=== PATIENT | female | born 1965 | race Caucasian/White ===

== ENCOUNTER → 2019-11-21 13:07 | Outpatient (BNVA) | payer BC, OTHER, SELFPAY | PROVIDERS: Family Provider Electrodiagnostic Medicine; PCP Electrodiagnostic Medicine; Visit Provider Internal Medicine Rheumatology | DX: L40.50 Arthropathic psoriasis, unspecified (principal); Z79.899 Other long term (current) drug therapy | CPT/HCPCS: 36415; 82565; 84460; 85651; 86140; 86480 ==

== ENCOUNTER → 2019-11-21 13:11 | Outpatient (BNVA) | payer BC, SELFPAY | PROVIDERS: Family Provider Electrodiagnostic Medicine; PCP Electrodiagnostic Medicine; Visit Provider Internal Medicine Rheumatology | DX: L40.50 Arthropathic psoriasis, unspecified (principal) | CPT/HCPCS: 85025 ==

== ENCOUNTER → 2020-04-14 14:13 | Outpatient (BNVA) | payer BC, SELFPAY | PROVIDERS: Family Provider Electrodiagnostic Medicine; PCP Electrodiagnostic Medicine; Visit Provider Internal Medicine Rheumatology | DX: Z79.899 Other long term (current) drug therapy (principal) | CPT/HCPCS: 36415; 80076; 82565; 85025; 85651; 86140 ==

== ENCOUNTER → 2020-05-21 14:38 | Outpatient (BNVA) | payer BC, OTHER, SELFPAY | PROVIDERS: Family Provider Electrodiagnostic Medicine; PCP Electrodiagnostic Medicine; Visit Provider Internal Medicine | DX: L40.50 Arthropathic psoriasis, unspecified (principal); R21 Rash and other nonspecific skin eruption | CPT/HCPCS: 99214 ==

== ENCOUNTER 2020-09-09 11:13 | Outpatient (CLI) | payer BC, SELFPAY ==
--- NOTE | 2020-09-09 11:19 | MM_ITS ---
WS: [id number] BILATERAL DIGITAL SCREENING MAMMOGRAPHY WITH CAD CLINICAL INFORMATION: SCREENING HISTORY: Screening mammogram. No current complaints. COMPARISON: TECHNIQUE: Bilateral CC and MLO views. FINDINGS: The breasts are composed of heterogeneous fibroglandular density tissue, which can limit the detectio n of small underlying mass lesions. No suspicious mass, asymmetry, calcifications, or architectural d istortion. No evidence of malignancy. Punctate and lucent centered calcifications. Stable right axill jorgito tail lymph node. MM/[place] [id number] IMPRESSION: BI-RADS: 2-Benign FOLLOW UP: 1 Year Follow-up Recommend return to annual screening mammography.
== END 2020-09-09 11:14 | disposition home or self-care (01) ==
LOC: RADSHAW 11:18
PROVIDERS: Family Provider Electrodiagnostic Medicine; PCP Electrodiagnostic Medicine; Visit Provider Electrodiagnostic Medicine
DX: Z12.31 Encounter for screening mammogram for malignant neoplasm of breast (principal)
CPT/HCPCS: 77067

== ENCOUNTER → 2020-11-10 15:42 | Outpatient (BNVA) | payer BC, SELFPAY | PROVIDERS: Family Provider Electrodiagnostic Medicine; PCP Electrodiagnostic Medicine; Visit Provider Internal Medicine | DX: Z79.899 Other long term (current) drug therapy (principal) | CPT/HCPCS: 36415; 80053; 85025; 85651; 86140 ==

== ENCOUNTER → 2020-11-18 12:06 | Outpatient (BNVA) | payer BC, SELFPAY | PROVIDERS: Family Provider Electrodiagnostic Medicine; PCP Electrodiagnostic Medicine; Visit Provider Internal Medicine | DX: L40.50 Arthropathic psoriasis, unspecified (principal); Z79.899 Other long term (current) drug therapy; Z87.891 Personal history of nicotine dependence | CPT/HCPCS: 99213; 99214 ==

== ENCOUNTER 2021-01-08 10:57 | Outpatient (CLI) | payer BC, SELFPAY ==
--- NOTE | 2021-01-08 11:05 | XR_ITS ---
WS: [id number] Right knee, 3 views, 01/08/2021 Clinical Data: DEGENERATIVE JOINT DZ R KNEE/CHRONIC R KNEE PAIN Comparison: Right knee, 08/10/2017. Findings: No fractures or dislocations are seen. There is narrowing of the medial joint compartment with develo pment of a small spur of the medial femoral condyle.. The patella shows a small spur at the posterior superior aspect.. The soft tissues are unremarkable. XR/XR knee RT 3V* [id number] Impression: Osteoarthritis with medial joint compartment narrowing and posterior patellar s purring of the right knee.
== END 2021-01-08 10:58 | disposition home or self-care (01) ==
PROVIDERS: PCP Electrodiagnostic Medicine; Visit Provider Electrodiagnostic Medicine
DX: M17.11 Unilateral primary osteoarthritis, right knee (principal)
CPT/HCPCS: 73562

== ENCOUNTER → 2021-04-01 13:00 | Outpatient (BNVA) | payer BC, SELFPAY | PROVIDERS: PCP Electrodiagnostic Medicine; Visit Provider Internal Medicine | DX: L40.50 Arthropathic psoriasis, unspecified (principal); Z79.899 Other long term (current) drug therapy; Z87.891 Personal history of nicotine dependence | CPT/HCPCS: 36415; 80053; 85025; 85651; 86140; 99213; 99214 ==

== ENCOUNTER → 2021-05-21 12:15 | Outpatient (BNVA) | payer BC, SELFPAY | PROVIDERS: PCP Electrodiagnostic Medicine; Visit Provider Surgery | DX: Z11.52 Encounter for screening for COVID-19 (principal) | CPT/HCPCS: 87635 ==

== ENCOUNTER 2021-05-27 08:13 | Day surgery (SDC) | payer BC, SELFPAY ==
[2021-05-25 08:34] VITALS: BMI 43.0
--- NOTE | 2021-05-27 08:33 | ANES.PREANE2 ---
Pre-Anesthetic Assessment Pre-Anesthetic Assessment: Height/Weight: Height 1.7 m Weight 124.738 kg Proposed Procedure: Operation Date: 05/27/21 09:30 Proposed Procedures p EGD [id number] z79.899 z12.11(Not Applicable) - Joseph Romero MD s Colonoscopy(Not Applicable) - Joseph Romero MD Was Beta Jovanny taken within 24 hours: N/A Was Clonidine taken within 24 hours: N/A Social: Social History: No alcohol and No tobacco Exam: Pre-Anes Outpt Exam: alert, oriented x 3, clear to auscultation bilaterally and regular rate & rhythm Airway: Submandibular: WNL Cervical ROM: WNL MP: 2 Dentition: Full CV/HEM: CV/HEM: HTN Metabolic: Metabolic: DM, Hyperlipidemia, Morbid obesity and Thyroid Neuropsych: Neuropsych: Anxiety Anesthetic Plan: ASA status: 3 Anesthesia: MAC Risk of > 500 ml blood loss (7ml/kg in children): No PFSH Anesthesia PFSH: Medical History Psoriasis Psoriatic arthritis Family History Mother Diabetes Heart disease Hypertension Brother Diabetes Grandmother Cancer Social History Smoking and tobacco status: former smoker Alcohol intake: current Alcohol type: beer Lives independently: Yes Household members: spouse and children History of recent travel: No Data Anesthesia Cardiac Studies: No Data to Display
[2021-05-27 08:47] VITALS: BP 121/80; PULSE 91; RESP 18; TEMP 36.6; O2SAT 97
[2021-05-27] MEDS: sodium chloride 0.9% 1,000 ML 30 ML IV (08:58)
[2021-05-27 09:02] LABS: Glucose Point of Care 128 mg/dL (70-110)
--- NOTE | 2021-05-27 09:15 | W.PM.OPSFHP ---
Same Day Surgery H&P Indication for Procedure/HPI DATE OF PROCEDURE: May 27, 2021 CHIEF COMPLAINT/INDICATIONFOR SURGICAL PROCEDURE: Morbid obesity PREOP DIAGNOSIS: Prebariatric surgery evaluation and screening colonoscopy PLANNED PROCEDRUE: Operation Date: 05/27/21 09:30 Proposed Procedures p EGD [id number] z79.899 z12.11(Not Applicable) - Joseph Romero MD s Colonoscopy(Not Applicable) - Joseph Romero MD Patient comes in as a follow-up with a current weight of 273 pounds and a BMI of 42.7. She has been on the low calorie diet of 1800 pounds. Continues to struggle with her obesity status and her EGD and colonoscopy are still pending. Continues to show interest in weight loss surgery as a sustainable option for her obesity condition and associated metabolic syndrome Interim history 05/27/2021 Patient comes today for diagnostic EGD and screening colonoscopy ROS All systems have been reviewed negative except as per the above or per problem list Medications/Allergies* Home Medications Medication Instructions Recorded Confirmed Type alprazolam 0.5 mg tablet 0.5 mg PO DAILY 05/21/20 05/27/21 History canagliflozin 100 mg tablet 100 mg PO DAILY 05/21/20 05/27/21 History cholecalciferol (vitamin D3) 1,250 50,000 unit PO .weekly cap 05/21/20 05/27/21 History mcg (50,000 unit) capsule fluoxetine 40 mg capsule 40 mg PO DAILY 05/21/20 05/27/21 History fluticasone propionate 50 1 spray INTRANASAL DAILY 05/21/20 05/27/21 History mcg/actuation nasal spray,suspension folic acid 1 mg tablet 1 mg PO DAILY 05/21/20 05/27/21 History furosemide 20 mg tablet 20 mg PO DAILY 05/21/20 05/27/21 History insulin glargine 100 unit/mL (3 125 unit SUBCUT BID ml 05/21/20 05/25/21 History mL) subcutaneous pen levothyroxine 88 mcg capsule 88 mcg PO DAILY 05/21/20 05/27/21 History lisinopril 20 mg tablet 20 mg PO DAILY 05/21/20 05/27/21 History oxybutynin chloride 10 mg 10 mg PO DAILY 05/21/20 05/27/21 History tablet,extended release 24 hr simvastatin 20 mg tablet 20 mg PO DAILY 05/21/20 05/27/21 History Allergies/Adverse Reactions Allergy/AdvReac Type Severity Reaction Status Date / Time codeine AdvReac Mild nausea Verified 05/27/21 08:42 Current Medications: Generic Name Dose Route Start Last Admin Trade Name Stephy PRN Reason Stop Dose Admin Sodium Chloride 1,000 mls @ 30 mls/hr 05/27/21 08:45 05/27/21 08:58 Sodium Chloride 0.9% IV 05/28/21 08:44 30 mls/hr .Q24H RACHELLE Administration Pertinent History/Comorbid Conditions* Medical History (Updated 03/06/21 @ 07:26 by Joseph Romero MD) Psoriasis Psoriatic arthritis Family History (Updated 05/21/20 @ 15:16 by Vira Ferreira LPN) Diabetes Mother Brother Heart disease Mother Cancer Grandmother Hypertension Mother Social History Smoking and tobacco status: former smoker Alcohol intake: current Alcohol type: beer Lives independently: Yes Household members: spouse and children History of recent travel: No Pertinent Exam Findings alert, oriented x 3, clear to auscultation bilaterally, regular rate & rhythm and procedure specific exam findings (Abdominal examination nontender nondistended soft) Recommendations Surgery/Procedure today (Diagnostic EGD and colonoscopy) Other Plans: Plan of care; After thorough history and physical examination and reviewing the chart, plan to perform a diagnostic esophagogastroduodenoscopy and screening colonoscopy with possible biopsy and possible polypectomy. I discussed with the patient in detail the risks,benefits,alternatives and indications.The risk of aspiration, bleeding, soft tissue injury, perforation of the stomach/esophagus/colon and other potential concomitant complications were explained to the patient in details also the potential need for Thoracotomy and or Laproscoy/Laparotomy to repair any related complications including but not limited to colectomy and or Closotomy. The patient understood this well and did agree to proceed. Rationale was carefully and clearly discussed with the patient.Appropriate informed consent have been reviewed and signed Verbal and written Instructions were given to the patient for colonoscopy prep Coding Level of Care Code Acute Supervisor [employer] for Kevin Martin
[2021-05-27 09:40] VITALS: BP 93/64; PULSE 85; RESP 18; TEMP 36.3; O2SAT 95
[2021-05-27 09:50] VITALS: BP 139/91; PULSE 73; RESP 18; O2SAT 97
--- NOTE | 2021-05-27 14:57 | ANE.PACU2 ---
Inpatient post-anesthesia follow up: Airway intact: Yes Vital signs: Temperature 97.4 F Pulse Rate 73 Respiratory Rate 18 Blood Pressure 139/91 Pulse Oximetry 97 Oxygen Delivery Me thod Room Air Oxygen Flow Rate Fraction of Inspir ed Oxygen Hydration adequate: Yes Nausea and vomiting: No Pain level: 1 Mental status: Baseline
== END 2021-05-27 10:09 | disposition home or self-care (01) ==
PROVIDERS: PCP Electrodiagnostic Medicine; Visit Provider Surgery
PROC: 0DJ08ZZ Inspection of Upper Intestinal Tract, Via Natural or Artificial Opening Endoscopic (ICD-10-PCS; CPT 43235; principal; 2021-05-27 09:30)
PROC: 0DJD8ZZ Inspection of Lower Intestinal Tract, Via Natural or Artificial Opening Endoscopic (ICD-10-PCS; CPT 45378; 2021-05-27 09:30)
DX: Z12.11 Encounter for screening for malignant neoplasm of colon (principal); K57.30 Diverticulosis of large intestine without perforation or abscess without bleeding; K29.80 Duodenitis without bleeding; E66.01 Morbid (severe) obesity due to excess calories; Z68.41 Body mass index [BMI] 40.0-44.9, adult; Z82.49 Family history of ischemic heart disease and other diseases of the circulatory system; Z83.3 Family history of diabetes mellitus; Z87.891 Personal history of nicotine dependence
CPT/HCPCS: 36416; 43239; 45378; 82962; 87077; 96360; J2704; J7030

== ENCOUNTER → 2021-07-27 14:06 | Outpatient (BNVA) | payer BC, SELFPAY | PROVIDERS: PCP Electrodiagnostic Medicine; Visit Provider Internal Medicine | DX: L40.50 Arthropathic psoriasis, unspecified (principal); Z79.899 Other long term (current) drug therapy | CPT/HCPCS: 36415; 80053; 85025; 85651; 86140 ==

== ENCOUNTER → 2021-08-02 13:50 | Outpatient (BNVA) | payer BC, SELFPAY | PROVIDERS: PCP Electrodiagnostic Medicine; Visit Provider Internal Medicine | DX: L40.50 Arthropathic psoriasis, unspecified (principal); Z79.899 Other long term (current) drug therapy; Z87.891 Personal history of nicotine dependence | CPT/HCPCS: 99213; 99214 ==

== ENCOUNTER → 2021-09-20 09:34 | Outpatient (BNVA) | payer BC, SELFPAY | PROVIDERS: PCP Electrodiagnostic Medicine; Visit Provider Surgery | DX: Z01.812 Encounter for preprocedural laboratory examination (principal); Z20.822 Contact with and (suspected) exposure to COVID-19 | CPT/HCPCS: 87635 ==

== ENCOUNTER 2021-09-28 07:24 | Day surgery (SDC) | payer BC, SELFPAY ==
[2021-09-20 08:37] VITALS: BMI 41.8
--- NOTE | 2021-09-20 09:19 | ANES.PREANE2 ---
Pre-Anesthetic Assessment Pre-Anesthetic Assessment: Height/Weight: Height 1.7 m Weight 121.109 kg Preop Diagnosis: Prebariatric surgery evaluation and screening colonoscopy Proposed Procedure: Operation Date: 09/27/21 07:00 Proposed Procedures p Laparoscopic Gastric Sleeve w/ EGD [id number] E66(Not Applicable) - Joseph Romero MD s EGD(Not Applicable) - Joseph Romero MD Familial anesthetic complications: PONV Social: Social History: No alcohol and No tobacco Exam: Pre-Anes Outpt Exam: alert, oriented x 3, clear to auscultation bilaterally and regular rate & rhythm Airway: MP: 1 Dentition: Partials CV/HEM: CV/HEM: HTN GI: GI: GERD (occassional) Metabolic: Metabolic: DM, Hyperlipidemia, Morbid obesity and Thyroid Musc/skel: Comments: psoriatic arthritis Anesthetic Plan: ASA status: 3 Anesthesia: General Risk of > 500 ml blood loss (7ml/kg in children): No PFSH Anesthesia PFSH: Medical History BMI 40.0-44.9, adult Hypertension Morbid obesity Psoriasis Psoriatic arthritis Type 2 diabetes mellitus Family History Mother Diabetes Heart disease Hypertension Brother Diabetes Grandmother Cancer Social History Alcohol intake: former Former alcohol use details: not had in 1 month Lives independently: Yes Household members: spouse and children History of recent travel: No Data Anesthesia CBC & Chem 7: 09/20/21 08:50 Cardiac Studies: No Data to Display
[2021-09-20 10:01] LABS: Anion Gap 16.6 (5-19); Blood Urea Nitrogen 19 mg/dL (6-20); Calcium 8.7 mg/dL (8.5-10.5); Carbon Dioxide 25 mmol/L (22-29); Chloride 102 mmol/L (98-107); Glomerular Filtration Rate 86.2 mL/min (90-130); Glucose 153 mg/dL (65-115); Osmolality Calculated 293 mOsm/kg (285-295); Potassium 4.6 mmol/L (3.5-5.1); Sodium 139 mmol/L (136-145)
[2021-09-28] VITALS (8 sets, daily range): BP systolic 104–149; BP diastolic 61–77; PULSE 72–94; RESP 14–24; TEMP 36.3–36.8; O2SAT 91–100
--- NOTE | 2021-09-28 07:53 | W.PM.OPSUD ---
Surgery/Procedure H&P Update DATE OF PROCEDURE: September 28, 2021 DATE H&P PERFORMED: 09/08/21 H&P UPDATE INFORMATION: I have reviewed H&P completed within last 30 days, I have examined patient prior to procedure and Changes to prior documentation as noted here CHANGES TO PREVIOUS DOCUMENTATION: Patient dropped her weight to 267 pounds and was last time seen in my office 09/08/2021 had weight 276 pounds, patient had been compliant with a liquid protein diet. PREOP DIAGNOSIS: Morbid obesity PRIMARY INDICATION FOR PROCEDURE: The same PLANNED PROCEDURE: Operation Date: 09/28/21 10:35 Proposed Procedures p Laparoscopic Gastric Sleeve w/ EGD [id number] E66(Not Applicable) - Joseph Romero MD s EGD(Not Applicable) - Joseph Romero MD
--- NOTE | 2021-09-28 07:58 | P.ANESUD_ITS ---
Pre-Anesthetic Update Pre-Anesthetic Assessment: Date of Surgery/Procedure: 09/28/21 Preop Ami gnosis: Morbid obesity Proposed Procedure: Operation Date: 09/28/21 10:35 Proposed Procedures p Laparoscopic Gastric Sleeve w/ EGD [id number] E66(Not Applicable) - Joseph Romero MD s EGD(Not Applicable) - Joseph Romero MD Any changes to Pre-Anesthetic Assessment?: No Exam: Pre-Anes Outpt Exam: alert, oriented x 3, clear to auscultation bilaterally and regular rate & rhythm Cardiac Studies: No Data to Display
[2021-09-28 08:07] LABS: Glucose Point of Care 102 mg/dL (70-110)
[2021-09-28] MEDS: acetaminophen 1,000 MG/100 ML PIGGYBACK 400 MG IV (08:10)
[2021-09-28] MEDS: sodium chloride 0.9% 1,000 ML 999 ML IV (08:10)
[2021-09-28] MEDS: scopolamine 1.5 Patch 1 PATCH TRANSDERMA (08:14)
[2021-09-28] MEDS: heparin 5,000 unit/mL INJ 1 mL 5000 UNIT SUBCUT (08:14)
[2021-09-28] MEDS: ceFAZolin 3,000 MG in sodium chloride 0.9% (100 ml) 100 ML 200 MG IV (08:33)
[2021-09-28] MEDS: pantoprazole 40 mg SDV IVP (09:30)
--- NOTE | 2021-09-28 09:40 | SUR.OPER ---
Called and notified of surgical start.
--- NOTE | 2021-09-28 10:19 | P.OP_ITS ---
Operative Report Date of procedure: September 28, 2021 Pre-op Diagnosis: Morbid obesity Post-op diagnosis: other (Morbid obesity status with severe hepatomegaly) Post-op Findings: Hepatic steatosis Procedure Done: 1-Diagnostic laparoscopy 2-Laparoscopic liver biopsy Implants: Piece of Surgicel at the liver biopsy site Specimens removed/disposition: Liver biopsy Surgeon: Joseph Romero [employer] Operator: Esther Mayes Circulating nurse Lili Anesthesia: General (SA[facility] Haas, Dr. Castellanos) Estimated blood loss (mL): 5 IV fluids (mL): 2,300 Urine output (mL): 75 Condition: stable Disposition: same day Procedure: Patient was identified in the holding area, appropriate pharmacologic DVT prophylaxis was given and preoperative IV fluid hydration, patient was then taken to the operating room where the patient was placed in supine position, intubated by anesthesia prophylactic antibiotics were given per protocol, Time- out was done verifying the patient's name/date of /planned procedure and destination after the procedure, all were in agreement.SCDs confirmed to be functioning, and beta steven protocol was confirmed. A Sharpe catheter was inserted by the circulating nurse revealing clear urine. A foot board was applied to secure the patient while the patient is placed in reversed Trendelenburg, all pressure points were padded, and the patient was appropriately secured to the table, anesthesia was asked to rotate the table back and forth to verify that the patient is appropriately secured, and that was the case. The abdomen was prepped and draped under the usual sterile technique. A tra nsverse incision was made with a 15 blade scalpel approximately 15 cm below the xiphoid process and 3 cm left of the midline. A 5 mm optical trocar port was placed under direct vision into the peritoneal cavity without initial evidence of injury to peritoneal structures upon entry. The peritoneal cavity was insufflated with carbon dioxide gas up to 15 mmHg pressure. A 45? angle laparoscopy was placed through the port into the peritoneal cavity there was no significant blood, fluid, or evidence of intra- abdominal injury under direct visualization, Longer trocars were then used; a 12 mm trocar port was placed in the right epigastric region and a fourth 5 mm trocar port was placed in the mid epigastric region more caudad than and medial to the previous port. A 5 mm trocar port was placed in the left lateral flank and additional 5 mm trocar was inserted midway between the left lateral flank trocar and the initial 5 mm trocar. There after the index 5 mm trocar was switched to a 12 mm trocar under direct visualization after extending the skin incision. I lifted the omentum up to make sure there were no injuries encountered from the initial trocar insertion, the underlying transverse colon and small bowel viscera were normal. It is that the patient's liver is remarkably enlarged likely due to hepatic steatosis. A subxiphoid stab incision was made and dissection into the peritoneum with 5 mm obturator. A grasping laparoscopic clamp was inserted through here and clamped to the right tammie of the diaphragm to elevate the liver for the entirety of the case. All trocars inserted were long arc trocars due to the thick layer of subcutaneous tissue that the patient has.Patient was then placed in the reversed Trendelenburg. In spite of positioning the patient in reverse T. Marcus and elevation of the left lobe of the liver. Visualization was limited to the proximal part of the stomach and the GE junction and the spleen tend to be deeper in its location. And because of the remarkable enlargement of the liver and in spite of all maneuvers to help exposure I decided at this point it would be safer to abort the procedure. At this point I decided to obtain a liver biopsy from the left lobe of the liver and appropriate hemostasis was achieved which is accomplished by placement of a piece of Surgicel. A final look laparoscopy showed no bleeding or injuries. At this point I did place a figure of 8 PDS sutures under direct visualization to close the 12 mm trocar sites. Bilateral TAP (transversus abdominous plain peripheral nerve block) block using Exparel 20 mL Exparel,40 ml Normal saline,20 ml bupivacaine 0.25% 30 mL on each side injected, 20 mL injected the port sites. An interrupted #1 PDS suture on a granny needle suture passer was used to close the right epigastric and the other 12 mm trocar left of the midline fascial defects under direct visualization. The other trocars were removed under direct vision and no evidence of bleeding was identified. The pneumoperitoneum was decompressed. All skin incisions were irrigated with saline, then closed with sameer, followed by application of sterile dressings. The patient was extubated and taken to the recovery room with normal vital signs. Sharpe catheter was taken out at the end of the procedure. All counts of instruments, sponges and needles were completed at the end of the procedure I was present for the whole entire procedure
[2021-09-28] MEDS: HYDROcodone-acetaminophen 5-325 mg Tablet 1 TAB PO (11:39)
[2021-09-28] MEDS: ondansetron 2 mg/ML SDV 2 mL 4 MG IVP (11:43)
--- NOTE | 2021-09-28 12:26 | ANE.PACU2 ---
Inpatient post-anesthesia follow up: Airway intact: Yes Vital signs: Temperature 97.6 F Pulse Rate 83 Respiratory Rate 14 Blood Pressure 125/69 Pulse Oximetry 91 Oxygen Delivery Me thod Room Air Oxygen Flow Rate 8 Fraction of Inspir ed Oxygen Hydration adequate: Yes Nausea and vomiting: No Pain level: 3 Mental status: Baseline
== END 2021-09-28 11:55 | disposition home or self-care (01) ==
PROVIDERS: Anesthesiology; PCP Electrodiagnostic Medicine; Visit Provider Surgery
PROC: (CPT 49320; 2021-09-28 10:35)
DX: E66.01 Morbid (severe) obesity due to excess calories (principal); Z68.41 Body mass index [BMI] 40.0-44.9, adult; K76.0 Fatty (change of) liver, not elsewhere classified; I10 Essential (primary) hypertension; K21.9 Gastro-esophageal reflux disease without esophagitis; E11.9 Type 2 diabetes mellitus without complications; E78.5 Hyperlipidemia, unspecified; Z82.49 Family history of ischemic heart disease and other diseases of the circulatory system; Z83.3 Family history of diabetes mellitus; Z87.891 Personal history of nicotine dependence
CPT/HCPCS: 47379; 49320; 36416; 51702; 80048; 82962; 88307; 96372; C9113; C9290; J0690; J1100; J1200; J1644; J2250; J2405; J2704; J2710; J3010; J3490; J7030

== ENCOUNTER 2021-09-30 15:17 | Outpatient (CLI) | payer BC, SELFPAY ==
[2021-09-30 15:57] LABS: Basophils # 0.1 10^3/uL (0.0-0.1); Basophils % 0.6 %; Eosinophils # 0.1 10^3/uL (0.0-0.8); Eosinophils % 1.1 %; Hematocrit 40.6 % (37.0-47.0); Lymphocytes # 2.9 10^3/uL (0.8-4.8); Lymphocytes % 29.3 %; Mean Corpuscular Hemoglobin 30.3 pg (28.0-34.0); Mean Corpuscular Volume 94.6 fl (81-99); Mean Platelet Volume 10.8 fL (7.4-10.4); Monocytes # 0.6 10^3/uL (0.2-0.9); Monocytes % 5.8 %; Neutrophils # 6.11 10^3/uL (1.8-7.7); Neutrophils % 62.8 %; Nucleated Red Blood Cells % 0 %; Platelet Count 248 10^3/cmm (130-400); Red Blood Count 4.29 10^6/uL (4.1-5.3); Red Cell Distribution Width 13.8 % (12.1-15.1); White Blood Count 9.8 10^3/uL (4.0-10.0)
[2021-09-30 17:06] LABS: Alanine Aminotransferase 74 U/L (0-33); Albumin Level 3.5 g/dL (3.5-5.2); Alkaline Phosphatase 114 IU/L (35-105); Aspartate Amino Transferase 65 U/L (0-32); Blood Urea Nitrogen 11 mg/dL (6-20); Calcium 8.2 mg/dL (8.5-10.5); Carbon Dioxide 23 mmol/L (22-29); Chloride 105 mmol/L (98-107); Chol HDL Ratio 4.48 mg/dL (0.0-4.40); Cholesterol 139 mg/dL (0-200); Ferritin 278 ng/mL (15-150); Globulin 3.1 g/dL (1.3-4.6); Glucose 154 mg/dL (65-115); HDL Cholesterol 31 mg/dL (60-100); Iron 34 ug/dL (37-145); LDL Cholesterol Calculated 68 mg/dL (50-129); LDL HDL Ratio 2.19 RATIO (0.00-3.22); Osmolality Calculated 290 mOsm/kg (285-295); Percent Saturation 12.3 % (20-50); Sodium 139 mmol/L (136-145); Thyroid Stimulating Hormone 2.63 uIU/mL (0.27-4.20); Total Bilirubin 0.3 mg/dL (0.15-1.2); Total Iron Binding Capacity 275 mcg/dl; Total Protein 6.6 g/dL (6.6-8.7); Triglycerides 198 mg/dL (0-150); Unsaturated Iron Binding 241 ug/dL (112-347); Vitamin B12 586 pg/mL (232-1245)
[2021-09-30 18:09] LABS: Hepatitis A Antibody IgM Non-Reactive (Nonreactive); Hepatitis B Core AB, Total Non-Reactive (Nonreactive); Hepatitis B Surface AB 3.5 (11.5-1000); Hepatitis B Surface Antigen Non-Reactive (Nonreactive); Hepatitis C Virus Antibody Non-Reactive (Nonreactive)
[2021-09-30 18:20] LABS: Calcium 8.2 mg/dL (8.5-10.5)
[2021-09-30 18:25] LABS: Folate Level > 20.0 ng/mL (4.8-37.3)
[2021-09-30 18:42] LABS: Parathyroid Hormone 46.2 pg/mL (15-65)
[2021-10-04 11:53] LABS: Vit D 1,25 (Oh)2, Total 64 pg/mL (18-72); Vit D2 1,25 (Oh)2 <8 pg/mL; Vit D3 1,25 (Oh)2 64 pg/mL
[2021-10-04 18:02] LABS: Vitamin B1(Thiamin) Plas/Ser 8 nmol/L (8-30)
[2021-10-05 12:13] LABS: Zinc Level, Serum or Plasma 62 mcg/dL (60-130)
== END 2021-09-30 15:18 | disposition home or self-care (01) ==
LOC: LAB 15:21
PROVIDERS: PCP Electrodiagnostic Medicine; Visit Provider Surgery
DX: E66.01 Morbid (severe) obesity due to excess calories (principal); Z71.89 Other specified counseling; K76.0 Fatty (change of) liver, not elsewhere classified
CPT/HCPCS: 80053; 80061; 82310; 82607; 82652; 82728; 82746; 83540; 83550; 83735; 83970; 84425; 84443; 84630; 85025; 86705; 86706; 86709; 86803; 87340

== ENCOUNTER 2021-12-27 08:22 | Outpatient (CLI) | payer BC, SELFPAY ==
[2021-12-27 08:46] LABS: Basophils # 0.1 10^3/uL (0.0-0.1); Basophils % 0.6 %; Eosinophils # 0.1 10^3/uL (0.0-0.8); Hematocrit 42.4 % (37.0-47.0); Hemoglobin 13.3 g/dL (11.5-15.3); Lymphocytes # 3.2 10^3/uL (0.8-4.8); Lymphocytes % 30.4 %; Mean Corpuscular HGB Conc 31.4 g/dL (30.0-36.0); Mean Corpuscular Hemoglobin 28.4 pg (28.0-34.0); Mean Corpuscular Volume 90.6 fl (81-99); Mean Platelet Volume 10.1 fL (7.4-10.4); Monocytes # 0.6 10^3/uL (0.2-0.9); Monocytes % 5.9 %; Neutrophils # 6.44 10^3/uL (1.8-7.7); Neutrophils % 61.3 %; Nucleated Red Blood Cells % 0 %; Platelet Count 280 10^3/cmm (130-400); Red Blood Count 4.68 10^6/uL (4.1-5.3); Red Cell Distribution Width 14.2 % (12.1-15.1); White Blood Count 10.5 10^3/uL (4.0-10.0)
[2021-12-27 09:13] LABS: Alanine Aminotransferase 13 U/L (0-33); Albumin Level 4.2 g/dL (3.5-5.2); Alkaline Phosphatase 113 IU/L (35-105); Anion Gap 16.5 (5-19); Aspartate Amino Transferase 16 U/L (0-32); Blood Urea Nitrogen 18 mg/dL (6-20); C Reactive Protein 20.9 mg/L (0.0-4.9); Calcium 9.4 mg/dL (8.5-10.5); Carbon Dioxide 24 mmol/L (22-29); Chloride 103 mmol/L (98-107); Globulin 3.5 g/dL (1.3-4.6); Glomerular Filtration Rate 86.2 mL/min (90-130); Glucose 160 mg/dL (65-115); Osmolality Calculated 293 mOsm/kg (285-295); Potassium 4.5 mmol/L (3.5-5.1); Sodium 139 mmol/L (136-145); Total Bilirubin 0.3 mg/dL (0.15-1.2); Total Protein 7.7 g/dL (6.6-8.7)
[2021-12-27 09:20] LABS: Erythrocyte Sedimentation Rate 40 mm/hr (0-15)
== END 2021-12-27 08:23 | disposition home or self-care (01) ==
LOC: LAB 08:25
PROVIDERS: PCP Electrodiagnostic Medicine; Visit Provider Internal Medicine
DX: L40.50 Arthropathic psoriasis, unspecified (principal); Z79.899 Other long term (current) drug therapy
CPT/HCPCS: 36415; 80053; 85025; 85651; 86140

== ENCOUNTER 2022-10-05 11:10 | Outpatient (CLI) | payer OTHER, SELFPAY ==
--- NOTE | 2022-10-05 11:28 | XR_ITS ---
WS: [id number] EXAMINATION: XR lumbar spine 2-3V* [id number] L-SPINE : 3 views REASON FOR EXAM: BACK PAIN COMPARISON: 04/05/2016. ORDER DATE: 10/05/2022 11:30 AM FINDINGS: Straightening of normal lordosis, otherwise normal alignment. Vertebral body heights are maintained. Disc space narrowing and osteophytes with bony sclerosis at L2-L3. Slight disc space narrowing with small osteophytes at L3-L4 and L4-L5. Facet joint narrowing and slight hypertrophy suggested at L4-L5 and L5-S1. The posterior elements are intact. Sacroiliac joints appear normal on the AP view. Minor atherosclerotic calcified plaque in the aorta and bilateral tubal closure device n oted. XR/XR lumbar spine 2-3V* [id number] IMPRESSION: 1. Spondylosis, most pronounced at L2-L3. 2. Facet joint osteoarthritic changes are likely at L4-L5 and L5-S1. 3. No interval change compared to the previous study
== END 2022-10-05 11:11 | disposition home or self-care (01) ==
LOC: RAD 11:17
PROVIDERS: PCP Electrodiagnostic Medicine; Visit Provider Dermatology Procedural Dermatology
DX: M47.816 Spondylosis without myelopathy or radiculopathy, lumbar region (principal)
CPT/HCPCS: 72100

== ENCOUNTER → 2022-10-15 16:30 | Outpatient (BNVA) | payer BC, SELFPAY | PROVIDERS: PCP Electrodiagnostic Medicine; Visit Provider Nurse Practitioner | DX: J06.9 Acute upper respiratory infection, unspecified (principal) | CPT/HCPCS: 87400 ==

== ENCOUNTER 2022-11-29 08:04 | Outpatient (CLI) | payer BC, SELFPAY ==
--- NOTE | 2022-11-29 08:12 | MM_ITS ---
WS: [id number] BILATERAL SCREENING DIGITAL TOMOSYNTHESIS MAMMOGRAM WITH CAD HISTORY: screening COMPARISON: 09/09/2020, 01/24/2019 Bilateral CC and MLO views with tomosynthesis and synthetic mammography submitted. Computer aided det ection analyzed. Breast composition: There are scattered areas of fibroglandular density. No suspicious masses, microc alcifications or architectural distortion. Benign calcifications in each breast. MM/[place] [id number] IMPRESSION: BI-RADS: 2-Benign FOLLOW UP: 1 Year Follow-up
== END 2022-11-29 08:05 | disposition home or self-care (01) ==
LOC: RAD 08:09
PROVIDERS: PCP Electrodiagnostic Medicine; Visit Provider Electrodiagnostic Medicine
DX: Z12.31 Encounter for screening mammogram for malignant neoplasm of breast (principal)
CPT/HCPCS: 77063; 77067

== ENCOUNTER 2022-12-02 08:21 | Outpatient (CLI) | payer BC, SELFPAY ==
--- NOTE | 2022-12-02 | US_ITS ---
WS: [id number] TRANSVAGINAL PELVIC ULTRASOUND HISTORY: POST MENOPAUSAL BLEEDING COMPARISON: 09/18/2014 Extremely limited and suboptimal evaluation of the uterus and adnexa are there is a large amount of b owel gas with shadowing and the uterus is retroflexed. Uterus: 6.5 cm x 3.5 cm x 3.3 cm. Poorly visualized uterus. Retroflexed uterus causing significant li mitation. It would be difficult to exclude fibroid or mass. Endometrium: 0.4 cm. Incompletely and poorly visualized. Neither ovary is well visualized. No free fluid. US/US transvaginal [id number] IMPRESSION: Nearly nondiagnostic evaluation of the uterus and adnexa. Suboptimal due to pos ition of the uterus and obscuration by bowel gas.
== END 2022-12-02 08:22 | disposition home or self-care (01) ==
PROVIDERS: PCP Electrodiagnostic Medicine; Visit Provider Physician Assistant
DX: N95.0 Postmenopausal bleeding (principal)
CPT/HCPCS: 76830

== ENCOUNTER 2023-03-14 12:02 | Day surgery (SDC) | payer BC, SELFPAY ==
[2023-03-13 09:57] VITALS: BMI 43.8
[2023-03-14] VITALS (11 sets, daily range): BP systolic 123–170; BP diastolic 61–102; PULSE 66–99; RESP 13–18; TEMP 36.1–36.6; O2SAT 93–96
[2023-03-14 12:43] LABS: Glucose Point of Care 130 mg/dL (70-110)
[2023-03-14] MEDS: sodium chloride 0.9% 1,000 ML 30 ML IV (12:44)
--- NOTE | 2023-03-14 13:07 | W.PM.OPSUD ---
Surgery/Procedure H&P Update DATE OF PROCEDURE: March 14, 2023 DATE H&P PERFORMED: 03/09/23 H&P UPDATE INFORMATION: I have reviewed H&P completed within last 30 days, I have examined patient prior to procedure and No changes to prior documentation PREOP DIAGNOSIS: pmb, morbid obesity PLANNED PROCEDURE: Operation Date: 03/14/23 13:50 Proposed Procedures p Hysteroscopy, dilation and curettage with Myosure [id number], N95.0(Not Applicable) - Cierra Cyr MD s Dilation And Curettage (D&C)(Not Applicable) - Cierra Cyr MD Related Problem List Diagnoses (1) PMB (postmenopausal bleeding): (2) Morbid obesity:
[2023-03-14] MEDS: ceFAZolin 3,000 MG in sodium chloride 0.9% (100 ml) 100 ML 200 MG IV (13:24)
--- NOTE | 2023-03-14 13:53 | ANES.PREANE2 ---
Pre-Anesthetic Assessment Height/Weight: Height 1.7 m Weight 127.006 kg Temp Pulse Resp BP Pulse Ox O2 Del Method 97.3 F L 70 18 150/102 95 Room Air 03/14/23 12:09 03/14/23 12:09 03/14/23 12:09 03/14/23 12:03/14/23 12:03/14/23 12:27 Preop Diagnosis: pmb Operation Date: 03/14/23 13:50 Proposed Procedures p Hysteroscopy, dilation and curettage with Myosure [id number], N95.0(Not Applicable) - Cierra Cyr MD s Dilation And Curettage (D&C)(Not Applicable) - Cierar Cyr MD Familial anesthetic complications: None Was Beta Jovanny taken within 24 hours: N/A Was Clonidine taken within 24 hours: N/A Last intake: Intake Last Liquid Date 03/13/23 Last Liquid Time 21:00 Last Solid Date 03/13/23 Last Solid Time 21:00 Social Alcohol (occasional) and No tobacco Exam alert, oriented x 3 and clear to auscultation bilaterally Airway Submandibular: within normal limits Cervical ROM: within normal limits Mallampati: Class II Dentition: full History/ROS No significant history except as noted Pulmonary None reported CV/HEM Hypertension None reported Hepatic None reported GI None reported Metabolic Diabetes Mellitus and Thyroid Disease [facility] [place] None reported Neuropsych None reported Anesthetic Plan ASA status: 3 Anesthesia: Anesthesia Evaluation and MAC Risk of > 500 ml blood loss (7ml/kg in children): No Medications/Allergies Home Medications Medication Instructions Recorded Confirmed Last Taken Type cholecalciferol (vitamin D3) 1,250 50,000 unit PO .weekly 05/21/20 03/13/23 03/08/23 History mcg (50,000 unit) capsule fluoxetine 40 mg capsule (Prozac) 40 mg PO DAILY 05/21/20 03/13/23 03/13/23 History folic acid 1 mg tablet 1 mg PO DAILY 05/21/20 03/13/23 03/13/23 History furosemide 20 mg tablet 20 mg PO DAILY 05/21/20 03/13/23 03/13/23 History levothyroxine 88 mcg capsule 88 mcg PO DAILY 05/21/20 03/13/23 03/13/23 History lisinopril 20 mg tablet 20 mg PO DAILY 05/21/20 03/13/23 03/13/23 History simvastatin 20 mg tablet 20 mg PO DAILY 05/21/20 03/13/23 03/13/23 History alprazolam 0.5 mg tablet 0.5 mg PO DAILY PRN nervous 08/02/21 03/13/23 03/13/23 History fluticasone propionate 50 1 spray intranasal DAILY PRN 08/02/21 03/13/23 Unknown History mcg/actuation nasal allergies spray,suspension (Flonase Allergy Relief) caffeine 200 mg tablet (Stay Awake) 200 mg PO DAILY PRN stay awake 01/06/22 03/13/23 Unknown History dapagliflozin 5 mg tablet (Farxiga) 5 mg PO DAILY 01/06/22 03/13/23 03/13/23 History insulin glargine 100 unit/mL (3 See Rx Instructions SUBCUT BID 03/05/22 03/13/23 03/13/23 History mL) subcutaneous pen (Lantus Solostar U-100 Insulin) apremilast 30 mg tablet (Otezla) 30 mg PO BID #180 tabs 10/05/22 03/13/23 03/13/23 Rx meloxicam 15 mg tablet 15 mg PO DAILY #30 tabs 02/01/23 03/13/23 03/13/23 Rx Allergies Allergy/AdvReac Type Severity Reaction Status Date / Time codeine AdvReac Mild nausea Verified 03/14/23 12:23 Current Medications Generic Name Dose Route Start Last Admin Trade Name Freq PRN Reason Stop Dose Admin Sodium Chloride 1,000 mls @ 30 mls/hr 03/14/23 12:15 03/14/23 12:44 Sodium Chloride 0.9% IV 03/15/23 12:14 30 mls/hr .Q24H RACHELLE Administration PFSH Anesthesia Medical History BMI 40.0-44.9, adult Depression with anxiety Hepatic steatosis History of cataract 2020 Hyperlipidemia Hypertension Hypertension Hypothyroidism Immunosuppression Morbid obesity Psoriasis Psoriatic arthritis Sleep apnea Type 2 diabetes mellitus Surgical History History of colonoscopy 5+years History of dilatation and curettage History of lumpectomy of left breast History of tubal ligation Family History Mother Diabetes Heart disease Hypertension Brother Diabetes Grandmother Cancer Social History Substance/Drug Use: never Data Anesthesia Cardiac Studies: No Data to Display
--- NOTE | 2023-03-14 14:20 | P.OP_ITS ---
Operative Report Date of procedure: March 14, 2023 Pre-op diagnosis: Preop Diagnosis pmb Post-op diagnosis: same Post-op findings: 9 week sized uterus with excessive tissue Procedure done: hysteroscopy, dilation and curettage with myosure Specimens removed/disposition: endometrial curettings to pathology Surgeon: Cierra Cyr Anesthesia: General Estimated blood loss (mL): 5 IV fluids (mL): 300 Complications: none Condition: stable Disposition: PACU Procedure: The patient was taken to the operating room where monitored anesthesia was administered and to be adequate. She was prepped and draped in the normal sterile fashion in the dorsal lithotomy position in [facility]. A weighted speculum was placed into the vagina and the anterior lip of the cervix grasped with a single-tooth tenaculum. The uterus was sounded to 9 cm. The cervix was dilated to 16 [place]. The hysteroscope was advanced into the endometrial ca vity. There was excessive tissue visualized. The MyoSure device was activated and the tissue was removed. Pictures were taken pre and post procedure. All instruments were removed. The patient tolerated the procedure well. Sponge lap and needle counts were correct x3. She was taken to the recovery room in stable condition.
--- NOTE | 2023-03-14 14:25 | PM.DCS ---
Discharge Providers Date of Admission: 03/14/23 Date of Discharge: March 14, 2023 Attending Provider at Discharge: Cierra Cyr MD Primary Care Provider: Gautam May DO Diagnoses at Discharge Discharge Diagnosis (1) PMB (postmenopausal bleeding): Status: Acute (2) Morbid obesity: Status: Acute Reason for Visit Reason for Visit: 61431 N95.0 Hospital Course Hospital Course The patient was admitted for surgery. She did well postoperatively and was ready for discharge Discharge Data Studies Completed and Pending Pending at discharge Category Date Time Status Pathology: Surgical [PTH] Routine Pth 03/14/23 14:14 Ordered Laboratory Results POC Glucose 130 mg/dL (70-110) H 03/14/23 12:39 Vitals Last Vital Signs Temp 97 F L 03/14/23 14:11 Pulse 85 03/14/23 14:11 Resp 14 03/14/23 14:11 BP 170/76 03/14/23 14:11 Pulse Ox 96 03/14/23 14:11 O2 Del Method Room Air 03/14/23 14:11 Discharge Plan Discharge Patient Disposition: Home Condition: Stable Prescriptions: Continued caffeine [Stay Awake] 200 mg tablet 200 mg PO DAILY PRN (Reason: stay awake) Farxiga 5 mg tablet 5 mg PO DAILY folic acid 1 mg tablet 1 mg PO DAILY simvastatin 20 mg tablet 20 mg PO DAILY cholecalciferol (vitamin D3) 1,250 mcg (50,000 unit) capsule 50,000 unit PO .weekly Rx Instructions: on wednesdays lisinopril 20 mg tablet 20 mg PO DAILY fluoxetine [Prozac] 40 mg capsule 40 mg PO DAILY furosemide 20 mg tablet 20 mg PO DAILY levothyroxine 88 mcg capsule 88 mcg PO DAILY alprazolam 0.5 mg tablet 0.5 mg PO DAILY PRN (Reason: nervous) fluticasone propionate [Flonase Allergy Relief] 50 mcg/actuation spray,suspension 1 spray INTRANASAL DAILY PRN (Reason: allergies) Rx Instructions: administer into each nostril Lantus Solostar U-100 Insulin 100 unit/mL (3 mL) insulin pen See Rx Instructions SUBCUT BID Rx Instructions: 65-70 U SUBCUT twice a day; meloxicam 15 mg tablet 15 mg PO DAILY Qty: 30 3RF Otezla 30 mg tablet 30 mg PO BID Qty: 180 1RF Discharge Orders: Discharge Order (Routine); Ordered 03/14/23 Ordered By: Cierra Cyr Discharge Attestations Time Spent in Discharge Care*: less than 30 min Quality Metrics Clinical Quality Measures [ No reported AMI, CVA or VTE this stay] Coding Level of Care Code Acute Code for Chg Fwd Diagnoses PMB (postmenopausal bleeding) N95.0 Morbid obesity E66.01
[2023-03-14] MEDS: ketorolac 30 mg/mL INJ (14:35)
--- NOTE | 2023-03-14 15:15 | ANE.PACU2 ---
Inpatient post-anesthesia follow up: Airway intact: Yes Vital signs: Temperature 97.6 F Pulse Rate 72 Respiratory Rate 14 Blood Pressure 131/95 Pulse Oximetry 94 Oxygen Delivery Me thod Room Air Oxygen Flow Rate Fraction of Inspir ed Oxygen Hydration adequate: Yes Nausea and vomiting: No Pain level: 1 Mental status: Baseline
--- NOTE | 2023-03-14 15:18 | SUR.PHASEII ---
MODERATE RELIEF OF CRAMPING. BLOOD GLUCOSE CHECKED. 130mg/dL
[2023-03-14 15:19] LABS: Glucose Point of Care 130 mg/dL (70-110)
== END 2023-03-14 15:35 | disposition home or self-care (01) ==
PROVIDERS: PCP Electrodiagnostic Medicine; Visit Provider Obstetrics & Gynecology
PROC: 0UDB8ZZ Extraction of Endometrium, Via Natural or Artificial Opening Endoscopic (ICD-10-PCS; CPT 58558; principal; 2023-03-14 13:40)
PROC: (CPT 58120; 2023-03-14 13:40)
DX: N95.0 Postmenopausal bleeding (principal); E66.01 Morbid (severe) obesity due to excess calories; Z68.41 Body mass index [BMI] 40.0-44.9, adult; I10 Essential (primary) hypertension; E11.9 Type 2 diabetes mellitus without complications; E03.9 Hypothyroidism, unspecified; Z79.4 Long term (current) use of insulin
CPT/HCPCS: 58558; 36416; 82962; 88305; J0690; J1100; J1885; J2405; J2704; J3010; J7030

== ENCOUNTER 2023-03-15 09:59 | Outpatient (CLI) | payer BC, SELFPAY ==
--- NOTE | 2023-03-15 10:13 | FL_ITS ---
WS: [id number] Small bowel series, 03/15/2023 Clinical Data: GASTROPARESIS Comparison: None. Fluoroscopy time: 0min [id number] # of spot films: 4 Findings: Preliminary film shows minimal air in the colon. There are fallopian tube occlusion clips in the true pelvis. The patient ingested the barium and the stomach filled normally. The barium flowed normally into the duodenum, jejunum, small bowel and ascending colon within 45 minutes. Spot films of the ileo cecal valve and multiple locations in the small bowel revealed no evidence of stenosis, narrowing, ma ss or abnormal position. The ileocecal valve was normal. FL/FL small bowel series* [id number] Impression: Negative small bowel follow-through.
== END 2023-03-15 10:00 | disposition home or self-care (01) ==
PROVIDERS: PCP Electrodiagnostic Medicine; Visit Provider Electrodiagnostic Medicine
DX: K31.84 Gastroparesis (principal)
CPT/HCPCS: 74250

== ENCOUNTER → 2023-06-13 17:05 | Outpatient (BNVA) | payer BC, SELFPAY | PROVIDERS: PCP Electrodiagnostic Medicine; Visit Provider Internal Medicine | DX: L40.50 Arthropathic psoriasis, unspecified (principal); Z79.899 Other long term (current) drug therapy | CPT/HCPCS: 80053; 82550; 83735; 84100; 84443; 85025; 85651; 86140 ==

== ENCOUNTER → 2024-03-06 09:58 | Outpatient (BNVA) | payer BC, SELFPAY | PROVIDERS: Visit Provider Internal Medicine Rheumatology | DX: L40.50 Arthropathic psoriasis, unspecified (principal); Z79.899 Other long term (current) drug therapy | CPT/HCPCS: 36415; 80076; 82565; 85025; 86140 ==

== ENCOUNTER 2024-08-19 14:32 | Outpatient (CLI) | payer BC, SELFPAY ==
[2024-08-19 14:46] LABS: Basophils # 0.1 10^3/uL (0.0-0.1); Eosinophils # 0.1 10^3/uL (0.0-0.8); Eosinophils % 1.8 %; Hematocrit 44.5 % (36-47); Lymphocytes # 1.7 10^3/uL (0.8-4.8); Lymphocytes % 26.7 %; Mean Corpuscular HGB Conc 31.9 g/dL (30-55); Mean Corpuscular Hemoglobin 28.9 pg (27-33); Mean Corpuscular Volume 90.4 fl (85-98); Mean Platelet Volume 10.7 fL (7.4-10.4); Monocytes # 0.5 10^3/uL (0.2-0.9); Monocytes % 8.5 %; Neutrophils # 3.88 10^3/uL (1.8-7.7); Neutrophils % 61.8 %; Nucleated Red Blood Cells % 0 %; Platelet Count 212 10^3/cmm (157-399); Red Blood Count 4.92 10^6/uL (3.85-5.65); Red Cell Distribution Width 13.8 % (12.1-15.1); White Blood Count 6.26 10^3/uL (3.29-11.43)
[2024-08-19 14:48] LABS: Erythrocyte Sedimentation Rate 15 mm/hr (0-15)
[2024-08-19 15:03] LABS: Alanine Aminotransferase 20 U/L (0-33); Albumin Level 4.2 g/dL (3.5-5.2); Alkaline Phosphatase 104 U/L (35-105); Aspartate Amino Transferase 20 U/L (0-32); C Reactive Protein 16.5 mg/L (0.0-4.9); Globulin 3.2 g/dL (1.3-4.6); Glomerular Filtration Rate 73.2 mL/min (90-130); Total Bilirubin 0.5 mg/dL (0.15-1.2); Total Protein 7.4 g/dL (6.6-8.7)
== END 2024-08-19 14:33 | disposition home or self-care (01) ==
LOC: LAB 14:33
PROVIDERS: PCP Electrodiagnostic Medicine; Visit Provider Internal Medicine Rheumatology
DX: Z79.899 Other long term (current) drug therapy (principal); L40.50 Arthropathic psoriasis, unspecified
CPT/HCPCS: 36415; 80076; 82565; 85025; 85651; 86140

== ENCOUNTER 2024-11-21 09:45 | Outpatient (CLI) | payer BC, SELFPAY ==
[2024-11-21 10:36] LABS: Basophils # 0.1 10^3/uL (0.0-0.1); Basophils % 0.7 %; Eosinophils # 0.1 10^3/uL (0.0-0.8); Eosinophils % 1.9 %; Hematocrit 41.6 % (36-47); Lymphocytes # 2.1 10^3/uL (0.8-4.8); Lymphocytes % 29.1 %; Mean Corpuscular HGB Conc 31.7 g/dL (30-55); Mean Corpuscular Hemoglobin 28.6 pg (27-33); Mean Corpuscular Volume 90.2 fl (85-98); Mean Platelet Volume 11.5 fL (7.4-10.4); Monocytes # 0.5 10^3/uL (0.2-0.9); Monocytes % 7.3 %; Neutrophils # 4.37 10^3/uL (1.8-7.7); Neutrophils % 60.4 %; Nucleated Red Blood Cells % 0 %; Platelet Count 207 10^3/cmm (157-399); Red Blood Count 4.61 10^6/uL (3.85-5.65); Red Cell Distribution Width 13.4 % (12.1-15.1); White Blood Count 7.24 10^3/uL (3.29-11.43)
[2024-11-21 10:40] LABS: Erythrocyte Sedimentation Rate 19 mm/hr (0-15)
[2024-11-21 10:52] LABS: Alanine Aminotransferase 18 U/L (0-33); Alkaline Phosphatase 110 U/L (35-105); Aspartate Amino Transferase 15 U/L (0-32); C Reactive Protein 7.9 mg/L (0.0-4.9); Globulin 3.1 g/dL (1.3-4.6); Glomerular Filtration Rate 85.4 mL/min (90-130); Total Bilirubin 0.3 mg/dL (0.15-1.2); Total Protein 7.1 g/dL (6.6-8.7)
== END 2024-11-21 09:46 | disposition home or self-care (01) ==
LOC: LAB 09:46
PROVIDERS: PCP Electrodiagnostic Medicine; Visit Provider Internal Medicine Rheumatology
DX: Z79.899 Other long term (current) drug therapy (principal); L40.50 Arthropathic psoriasis, unspecified
CPT/HCPCS: 36415; 80076; 82565; 85025; 85651; 86140

== ENCOUNTER 2025-02-05 08:08 | Outpatient (CLI) | payer BC, SELFPAY ==
--- NOTE | 2025-02-05 08:21 | MM_ITS ---
WS: [id number] SCREENING DIGITAL BREAST TOMOSYNTHESIS MAMMOGRAM WITH CAD HISTORY: SCREENING COMPARISON: 11/29/2022, 09/09/2020 Bilateral CC and MLO with tomosynthesis and synthetic mammography submitted. Computer aided detection analyzed. Breast composition: There are scattered areas of fibroglandular density. New very faint cluster of calcifications in the central RIGHT breast seen posterior to the nipple on the CC projection. These are probably just below the nipple line on the lateral projection. There are additional benign calcifications scattered within each breast. LEFT breast is negative. MM/MM [facility] tomosynthesis [id number] IMPRESSION: BI-RADS: 0 - Incomplete: Need additional imaging evaluation. FOLLOW UP: Need Additional Imaging RIGHT BREAST: Magnification views of suspicious calcification CC and MLO. True ML.
[2025-02-05 09:18] LABS: Basophils # 0.1 10^3/uL (0.0-0.1); Basophils % 0.9 %; Eosinophils # 0.1 10^3/uL (0.0-0.8); Eosinophils % 1.8 %; Hematocrit 43.6 % (36-47); Lymphocytes # 1.7 10^3/uL (0.8-4.8); Lymphocytes % 30.1 %; Mean Corpuscular HGB Conc 31.9 g/dL (30-55); Mean Corpuscular Hemoglobin 28.7 pg (27-33); Mean Corpuscular Volume 89.9 fl (85-98); Mean Platelet Volume 11.2 fL (7.4-10.4); Monocytes # 0.5 10^3/uL (0.2-0.9); Monocytes % 8.2 %; Neutrophils # 3.24 10^3/uL (1.8-7.7); Neutrophils % 58.8 %; Nucleated Red Blood Cells % 0 %; Platelet Count 201 10^3/cmm (157-399); Red Blood Count 4.85 10^6/uL (3.85-5.65); Red Cell Distribution Width 13.2 % (12.1-15.1); White Blood Count 5.51 10^3/uL (3.29-11.43)
[2025-02-05 09:21] LABS: Erythrocyte Sedimentation Rate 9 mm/hr (0-15)
[2025-02-05 09:51] LABS: Alanine Aminotransferase 18 U/L (0-33); Albumin Level 4.3 g/dL (3.5-5.2); Alkaline Phosphatase 98 U/L (35-105); Aspartate Amino Transferase 29 U/L (0-32); C Reactive Protein 11.3 mg/L (0.0-4.9); Globulin 3.3 g/dL (1.3-4.6); Glomerular Filtration Rate 73.2 mL/min (90-130); Total Bilirubin 0.5 mg/dL (0.15-1.2); Total Protein 7.6 g/dL (6.6-8.7)
== END 2025-02-05 08:09 | disposition home or self-care (01) ==
PROVIDERS: Internal Medicine Rheumatology; PCP Electrodiagnostic Medicine; Visit Provider Electrodiagnostic Medicine
DX: Z12.31 Encounter for screening mammogram for malignant neoplasm of breast (principal); Z79.899 Other long term (current) drug therapy; L40.50 Arthropathic psoriasis, unspecified; R92.323 Mammographic fibroglandular density, bilateral breasts; R92.1 Mammographic calcification found on diagnostic imaging of breast
CPT/HCPCS: 36415; 77063; 77067; 80076; 82565; 85025; 85651; 86140

== ENCOUNTER 2025-02-24 09:15 | Outpatient (CLI) | payer BC, SELFPAY ==
--- NOTE | 2025-02-24 09:18 | MM_ITS ---
WS: [email or web address] ADDITIONAL VIEWS BREAST RIGHT DIGITAL TOMOSYNTHESIS MAMMOGRAPHY WITH CAD. HISTORY: RIGHT breast calcifications. COMPARISON: 02/05/2025, 11/29/2022 and 09/09/2020 Technique: RIGHT ML. Magnification views, CC and MLO RIGHT breast. Breast composition: There are scattered areas of fibroglandular density. Cluster of pleomorphic calcifications is reidentified in the central RIGHT breast near 6:00. There are additional benign-appearing calcifications. No associated mass. MM/MM diag RT tomosynthesis [id number] IMPRESSION: BI-RADS: 4 - Suspicious Finding - Biopsy Should Be Considered. FOLLOW UP: Biopsy Recommended Stereotactic RIGHT breast biopsy of calcifications at 6:00. Notified Gautam May DO at 02/24/2025 9:56 AM. Discussed with Susan.
== END 2025-02-24 09:16 | disposition home or self-care (01) ==
LOC: RAD 09:16
PROVIDERS: PCP Electrodiagnostic Medicine; Visit Provider Electrodiagnostic Medicine
DX: R92.8 Other abnormal and inconclusive findings on diagnostic imaging of breast (principal); R92.321 Mammographic fibroglandular density, right breast; R92.1 Mammographic calcification found on diagnostic imaging of breast
CPT/HCPCS: 77061; G0279

== ENCOUNTER 2025-03-11 12:24 | Outpatient (CLI) | payer BC, SELFPAY ==
--- NOTE | 2025-03-11 12:46 | MM_ITS ---
WS: [email or web address] STEREOTACTIC RIGHT BREAST BIOPSY WITH VACUUM ASSISTANCE. History: Heterogeneous RIGHT breast calcifications. Biopsy recommended for suspicious calcifications. Procedure, risks, and complications were discussed the patient who agreed to proceed. Prior imaging was reviewed. Cluster of calcifications within the RIGHT breast are localized. Stereotactic imaging was performed. Patient was prepped and draped in usual sterile fashion. After 1% lidocaine, calcifications were targeted stereotactically in the RIGHT breast. Small incision was made. Needle advanced into the cluster of calcifications RIGHT breast with imaging demonstrating appropriate position relative to the calcifications. Multiple vacuum-assisted core biopsies were obtained. Postprocedure imaging demonstrates calcifications within the biopsy specimen. The biopsy cavity was lavaged. Titanium clip was placed at the biopsy site. Postprocedure imaging demonstrates clip in good position. No immediate complications. MM/[place] [id number] IMPRESSION: 1. Uncomplicated vacuum-assisted stereotactic biopsy of calcifications in the RIGHT breast. Pathology: Fibrocystic changes with microcalcifications. No atypia or malignanc y identified. See pathology report for further detail. BI-RADS 2 benign Recommend return to annual screening mammography.
--- NOTE | 2025-03-11 12:46 | MM_ITS ---
WS: [email or web address] STEREOTACTIC RIGHT BREAST BIOPSY WITH VACUUM ASSISTANCE. History: Heterogeneous RIGHT breast calcifications. Biopsy recommended for suspicious calcifications. Procedure, risks, and complications were discussed the patient who agreed to proceed. Prior imaging was reviewed. Cluster of calcifications within the RIGHT breast are localized. Stereotactic imaging was performed. Patient was prepped and draped in usual sterile fashion. After 1% lidocaine, calcifications were targeted stereotactically in the RIGHT breast. Small incision was made. Needle advanced into the cluster of calcifications RIGHT breast with imaging demonstrating appropriate position relative to the calcifications. Multiple vacuum-assisted core biopsies were obtained. Postprocedure imaging demonstrates calcifications within the biopsy specimen. The biopsy cavity was lavaged. Titanium clip was placed at the biopsy site. Postprocedure imaging demonstrates clip in good position. No immediate complications. MM/MM surgical specimen RT IMPRESSION: 1. Uncomplicated vacuum-assisted stereotactic biopsy of calcifications in the RIGHT breast. Pathology: Fibrocystic changes with microcalcifications. No atypia or malignanc y identified. See pathology report for further detail. BI-RADS 2 benign Recommend return to annual screening mammography.
--- NOTE | 2025-03-11 12:46 | MM_ITS ---
WS: [email or web address] STEREOTACTIC RIGHT BREAST BIOPSY WITH VACUUM ASSISTANCE. History: Heterogeneous RIGHT breast calcifications. Biopsy recommended for suspicious calcifications. Procedure, risks, and complications were discussed the patient who agreed to proceed. Prior imaging was reviewed. Cluster of calcifications within the RIGHT breast are localized. Stereotactic imaging was performed. Patient was prepped and draped in usual sterile fashion. After 1% lidocaine, calcifications were targeted stereotactically in the RIGHT breast. Small incision was made. Needle advanced into the cluster of calcifications RIGHT breast with imaging demonstrating appropriate position relative to the calcifications. Multiple vacuum-assisted core biopsies were obtained. Postprocedure imaging demonstrates calcifications within the biopsy specimen. The biopsy cavity was lavaged. Titanium clip was placed at the biopsy site. Postprocedure imaging demonstrates clip in good position. No immediate complications. MM/[place] [id number] IMPRESSION: 1. Uncomplicated vacuum-assisted stereotactic biopsy of calcifications in the RIGHT breast. Pathology: Fibrocystic changes with microcalcifications. No atypia or malignanc y identified. See pathology report for further detail. BI-RADS 2 benign Recommend return to annual screening mammography.
== END 2025-03-11 12:25 | disposition home or self-care (01) ==
LOC: RAD 12:25
PROVIDERS: PCP Electrodiagnostic Medicine; Visit Provider Electrodiagnostic Medicine
DX: R92.1 Mammographic calcification found on diagnostic imaging of breast (principal); N60.41 Mammary duct ectasia of right breast; R92.0 Mammographic microcalcification found on diagnostic imaging of breast
CPT/HCPCS: 19081; 77065; 88305

== ENCOUNTER 2025-06-13 10:55 | Outpatient (CLI) | payer BC, SELFPAY ==
[2025-06-13 12:11] LABS: Hematocrit 43.4 % (36-47); Hemoglobin 14.00 g/dL (11.27-16.99); Mean Corpuscular HGB Conc 32.3 g/dL (30-55); Mean Corpuscular Hemoglobin 29.3 pg (27-33); Mean Corpuscular Volume 90.8 fl (85-98); Nucleated Red Blood Cells % 0 %; Platelet Count 208 10^3/cmm (157-399); Red Blood Count 4.78 10^6/uL (3.85-5.65); White Blood Count 6.54 10^3/uL (3.29-11.43)
[2025-06-13 12:27] LABS: Albumin Level 4.3 g/dL (3.5-5.2); Alkaline Phosphatase 118 U/L (35-105); Globulin 3.3 g/dL (1.3-4.6); Total Protein 7.6 g/dL (6.6-8.7)
[2025-06-13 12:31] LABS: Aspartate Amino Transferase 32 U/L (0-32)
[2025-06-13 12:32] LABS: Alanine Aminotransferase 25 U/L (0-33)
== END 2025-06-13 10:56 | disposition home or self-care (01) ==
PROVIDERS: PCP Electrodiagnostic Medicine; Visit Provider Internal Medicine Rheumatology
DX: Z79.899 Other long term (current) drug therapy (principal)
CPT/HCPCS: 36415; 80076; 82565; 85025; 85651; 86140